=== PATIENT | male | born 1980 | race Caucasian/White ===

== ENCOUNTER 2021-06-06 19:57 | Observation (INO) ==
[2021-06-07] MEDS ORDERED: Ondansetron 4 MG/2 ML VIAL IVP PRN ×4 (00:12→15:27)
[2021-06-07] MEDS ORDERED: Naloxone 0.4 MG/ML INJ IVP PRN ×2 (00:12→15:27)
[2021-06-07] MEDS ORDERED: 0.9 % Sodium Chloride 1,000 ML IVC SCH (00:15)
[2021-06-07] MEDS ORDERED: *HR* LORazepam 2 MG/ML VIAL IVP PRN ×2 (00:16→15:27)
[2021-06-07] MEDS: *HR* Heparin 5,000 UNIT/ML VIAL SQ SCH ×2 (03:10→05:09)
[2021-06-07 07:52] LABS: Hematocrit 41.4 % (37.5-50.1); Hemoglobin 13.7 g/dL (12.9-16.9); Mean Corpuscular HGB Conc 33.1 g/dL (31.6-35.5); Mean Corpuscular Hemoglobin 31.9 pg (28.0-33.3); Mean Corpuscular Volume 96.5 fL (83.0-100.0); Mean Platelet Volume 10.9 fL (9.4-12.4); Platelet Count 153 K/mcL (140-400); Red Blood Count 4.29 M/mcL (4.19-5.50); Red Cell Distribution Width 13.4 % (11.5-14.5); White Blood Count 10.5 K/mcL (4.3-11.1)
[2021-06-07 08:05] LABS: Activated Partial Thrombo Time 30.6 Seconds (26.0-36.0); Prothrombin Time 11.4 Seconds (9.4-12.1)
[2021-06-07 08:15] LABS: BUN/Creatinine Ratio 10 (6-26); Blood Urea Nitrogen 9 mg/dL (6-20); Calcium 9.2 mg/dL (8.6-10.3); Carbon Dioxide 28 mEq/L (23-29); Chloride 100 mEq/L (98-107); Ethanol < 10 mg/dL (Less than 10); Glucose 182 mg/dL (70-105); Osmolality,Calculated 287 (280-300); Potassium 3.9 mEq/L (3.5-5.1); Sodium 137 mEq/L (136-145); eGFR For African Americans > 60 (> 60); eGFR For Non-African Americans > 60 (> 60)
[2021-06-07] MEDS ORDERED: Acetaminophen 325 MG TABLET PO PRN ×2 (10:06→15:27)
[2021-06-07] MEDS ORDERED: Famotidine 20 MG/2 ML VIAL IVP ONE (10:19)
[2021-06-07] MEDS ORDERED: Acetaminophen IV 1,000 MG/100 ML BAG IVPB ONE ×2 (10:20→15:27)
[2021-06-07] MEDS ORDERED: Albuterol 2.5 MG/3 ML NEBULIZER IH ONE (10:24)
[2021-06-07] MEDS ORDERED: *HR* HYDROmorphone PF 0.5 MG/0.5 ML SYRINGE IVP PRN ×2 (10:39→15:27)
[2021-06-07] MEDS ORDERED: Ringers Solution, Lactated 1,000 ML IVC SCH ×2 (10:45→15:27)
[2021-06-07] MEDS ORDERED: *HR* Propofol 200 MG/20 ML VIAL IVP ONE (10:48)
[2021-06-07] MEDS ORDERED: Lidocaine -MPF 2% 5 ML VIAL ONE (10:49)
[2021-06-07] MEDS ORDERED: *HR* FentaNYL (PF) 100 MCG/2 ML VIAL ONE (10:49)
[2021-06-07] MEDS ORDERED: *HR* Succinylcholine 200 MG/10 ML VIAL IVP ONE (10:59)
[2021-06-07] MEDS ORDERED: *HR* Rocuronium Bromide 50 MG/5 ML VIAL ONE (11:50)
[2021-06-07] MEDS ORDERED: Ondansetron 4 MG/2 ML VIAL ONE (12:05)
[2021-06-07] MEDS ORDERED: Sugammadex Sodium 200 MG/2 ML VIAL IV ONE (13:03)
[2021-06-07] MEDS ORDERED: Ipratropium/Albuterol Neb 3 ML ONE (13:59)
[2021-06-07] MEDS ORDERED: Ipratropium/Albuterol Neb 3 ML IH ONE (14:02)
[2021-06-07] MEDS ORDERED: Ketorolac 30 MG/ML VIAL IVP ONE (14:34)
[2021-06-07] MEDS: Apixaban 5 MG TABLET PO SCH (19:52)
[2021-06-07] MEDS: ceFAZolin 2,000 MG in 0.9 % Sodium Chloride 100 ML IVPB SCH (20:07)
[2021-06-08] MEDS: ceFAZolin 2,000 MG in 0.9 % Sodium Chloride 100 ML IVPB SCH (03:12)
[2021-06-08 04:36] LABS: Basophils % 0.3 %; Hematocrit 39.9 % (37.5-50.1); Hemoglobin 13.4 g/dL (12.9-16.9); Immature Granulocytes % 0.6 % (0-4); Lymphocytes # 1.5 K/mcL (0.6-4.6); Lymphocytes % 9.9 %; Mean Corpuscular HGB Conc 33.6 g/dL (31.6-35.5); Mean Corpuscular Hemoglobin 32.4 pg (28.0-33.3); Mean Corpuscular Volume 96.4 fL (83.0-100.0); Mean Platelet Volume 10.4 fL (9.4-12.4); Monocytes # 1.1 K/mcL (0.0-1.3); Monocytes % 7.3 %; Neutrophils # 12.2 K/mcL (1.6-8.9); Platelet Count 140 K/mcL (140-400); Red Blood Count 4.14 M/mcL (4.19-5.50); Red Cell Distribution Width 13.2 % (11.5-14.5); Segmented Neutrophils % 81.9 %; White Blood Count 14.9 K/mcL (4.3-11.1)
[2021-06-08 04:52] LABS: Alanine Aminotransferase 37 Units/L (7-52); Albumin/Globulin Ratio 1.3 (1.1-2.2); Alkaline Phosphatase 77 Units/L (34-104); Aspartate Amino Transferase 27 Units/L (13-39); BUN/Creatinine Ratio 13 (6-26); Bilirubin,Total 0.6 mg/dL (0.3-1.0); Blood Urea Nitrogen 13 mg/dL (6-20); Carbon Dioxide 31 mEq/L (23-29); Chloride 97 mEq/L (98-107); Glucose 182 mg/dL (70-105); Osmolality,Calculated 285 (280-300); Potassium 4.3 mEq/L (3.5-5.1); Sodium 135 mEq/L (136-145); eGFR For African Americans > 60 (> 60); eGFR For Non-African Americans > 60 (> 60)
[2021-06-08] MEDS: Apixaban 5 MG TABLET PO SCH ×2 (08:57→20:53)
[2021-06-08] MEDS ORDERED: [UNRECOGNIZED DRUG - OTHER] PO SCH (09:00)
[2021-06-08] MEDS ORDERED: HYDROCHLOROTHIAZIDE PO SCH (09:00)
[2021-06-08] MEDS ORDERED: LISINOPRIL PO SCH (09:00)
[2021-06-08] MEDS ORDERED: Ketorolac 15 MG/ML VIAL IVP ONE (15:42)
[2021-06-09] MEDS ORDERED: *HR* Labetalol 20 MG/4 ML SYRINGE IVP ONE (04:21)
[2021-06-09 05:50] LABS: Basophils # 0.1 K/mcL (0.0-0.2); Basophils % 0.5 %; Eosinophils # 0.1 K/mcL (0.0-0.6); Eosinophils % 0.7 %; Hematocrit 39.1 % (37.5-50.1); Hemoglobin 12.8 g/dL (12.9-16.9); Immature Granulocytes % 0.7 % (0-4); Lymphocytes # 2.9 K/mcL (0.6-4.6); Lymphocytes % 27.8 %; Mean Corpuscular HGB Conc 32.7 g/dL (31.6-35.5); Mean Corpuscular Hemoglobin 31.8 pg (28.0-33.3); Mean Platelet Volume 10.5 fL (9.4-12.4); Monocytes # 0.9 K/mcL (0.0-1.3); Monocytes % 8.3 %; Neutrophils # 6.6 K/mcL (1.6-8.9); Platelet Count 134 K/mcL (140-400); Red Blood Count 4.03 M/mcL (4.19-5.50); Red Cell Distribution Width 13.8 % (11.5-14.5); White Blood Count 10.6 K/mcL (4.3-11.1)
[2021-06-09 06:09] LABS: Alanine Aminotransferase 31 Units/L (7-52); Albumin 3.7 g/dL (3.5-5.7); Albumin/Globulin Ratio 1.3 (1.1-2.2); Alkaline Phosphatase 73 Units/L (34-104); Aspartate Amino Transferase 31 Units/L (13-39); BUN/Creatinine Ratio 17 (6-26); Bilirubin,Total 0.7 mg/dL (0.3-1.0); Blood Urea Nitrogen 16 mg/dL (6-20); Calcium 8.9 mg/dL (8.6-10.3); Carbon Dioxide 32 mEq/L (23-29); Chloride 96 mEq/L (98-107); Globulin 2.9 g/dL (2.4-3.5); Glucose 135 mg/dL (70-105); Osmolality,Calculated 283 (280-300); Potassium 3.3 mEq/L (3.5-5.1); Sodium 135 mEq/L (136-145); Total Protein 6.6 g/dL (6.4-8.9); eGFR For African Americans > 60 (> 60); eGFR For Non-African Americans > 60 (> 60)
[2021-06-09 07:01] VITALS: O2SAT 94
[2021-06-09] MEDS: Apixaban 5 MG TABLET PO SCH (08:20)
[2021-06-09 10:50] VITALS: PULSE 102; TEMP 98.3
[2021-06-09] MEDS ORDERED: *HR* Metoprolol 5 MG/5 ML VIAL IVP ONE (11:25)
[2021-06-09 13:01] VITALS: BP 159/93
== END 2021-06-09 14:00 | disposition home or self-care (01) ==
LOC: 4WAOSI → SUATTDRO 23:03 → 4WAOSI 06-07 11:36
PROVIDERS: ADMIT Internal Medicine; ATTEND Internal Medicine